=== PATIENT | male | born 1940 | race Caucasian/White ===

== ENCOUNTER 2016-10-08 17:16 | Emergency (ER) | payer MEDICARE, OTHER ==
[~2016-10-08 17:16] MED LIST: Iopamidol 370 76% 100 ML VIAL ONE
[2016-10-08] MEDS ORDERED: Ondansetron HCl/PF 4 MG/2 ML Vial ONE (17:44)
[2016-10-08] MEDS ORDERED: Sodium Chloride 0.9% 1,000 ML ONE (17:44)
[2016-10-08 17:59] LABS: #Basophils 0.1 thou/uL (0.0-0.2); #Eosinphils 0.1 thou/uL (0.0-0.7); #Lymphocytes 2.1 thou/uL (1.20-3.40); #Monocytes 0.8 thou/uL (0.11-0.59); %Basophils 0.9 % (0.0-1.0); %Eosinophils 1.4 % (0.0-10.0); %Lymphocytes 20.7 % (21.0-51.0); %Monocytes 8.2 % (0.0-10.0); %Neutrophils 68.7 % (42.0-75.0); ALT (SGPT) 21 U/L (8-55); AST (SGOT) 23 U/L (5-34); Albumin 4.1 g/dL (3.4-4.8); Alkaline Phosphatase 79 U/L (40-150); Anion Gap 17 mmol/L (10-20); BUN (Urea Nitrogen) 18 mg/dL (8.4-25.7); Bilirubin, Total 0.9 mg/dL (0.2-1.2); Calc. Creatinine Clearance 0 mL/min (70-130); Calcium 9.7 mg/dL (7.8-10.44); Carbon Dioxide 21 mmol/L (23-31); Chloride 100 mmol/L (98-107); Estimated GFR-MDRD 56; Glucose 118 mg/dL (83-110); Hemoglobin 15.9 g/dL (14.0-18.0); Lipase 32 U/L (8-78); Mean Corpuscular HGB CONC 32.8 g/dL (32.0-36.0); Mean Corpuscular Hemoglobin 27.9 pg (27.0-31.0); Mean Corpuscular Volume 85.1 fl (80.0-94.0); Mean Platelet Volume 8.9 fL (7.4-10.4); Platelet Count 191 thou/uL (130-400); Potassium 4.2 mmol/L (3.5-5.1); Protein, Total 8.1 g/dL (5.8-8.1); RBC Distribution Width 11.8 % (11.5-14.5); Red Blood Cell (RBC) Count 5.69 mill/uL (4.70-6.10); Sodium 134 mmol/L (136-145); White Blood Cell (WBC) Count 10.2 thou/uL (4.8-10.8)
[2016-10-08 18:01] LABS: Bilirubin Negative (Negative); Blood, Urine Negative (Negative); Glucose, Urine (Dipstick) Negative (Negative); Leukocyte Negative (Negative); Nitrite Negative (Negative); Protein, Urine (Dipstick) Negative (Neg-Trace); Specific Gravity, Urine 1.025 (1.005-1.030); Urobilinogen 0.2 mg/dL (0.2-1.0); pH, Urine 5.5 (5.0-9.0)
[2016-10-08 18:02] LABS: Clarity SL HAZY (Clear)
[2016-10-08 18:14] LABS: CKMB 4.2 ng/mL (0-6.6); Troponin I Less than 0.010 ng/mL (< 0.028)
[2016-10-08 18:27] LABS: Lactic Acid 1.4 mmol/L (0.5-2.2)
[2016-10-08] MEDS ORDERED: Morphine Sulfate 2 MG/ML SYRINGE ONE ×2 (18:49→18:52)
[2016-10-08] MEDS ORDERED: Lidocaine Viscous Sol 2% 15 ml UD Cup ONE (19:30)
--- NOTE | 2016-10-08 20:21 | RAD ---
AP SITTING PORTABLE CHEST ONE VIEW HISTORY: A 76-year-old male with abdominal pain. COMPARISON: 09/11/2016 FINDINGS: The left costophrenic angle is not completely included on this study. Heart size is normal. The lorenza ngs are clear. IMPRESSION: No acute intrathoracic disease involving the visualized chest. The left costophrenic angle is not i ncluded. POS: JEMAL
--- NOTE | 2016-10-08 22:12 | CT ---
CT ABDOMEN WITH IV CONTRAST 10/08/2016 HISTORY: Mid abdominal pain. CONTRAST: Isovue 370 95 mL IV. FINDINGS This examination was obtained with a suboptimal phase of contrast, with the majority of the contrast in the right atrium and right ventricle, as well as in the pulmonary arteries. There is only very minimal opacification of the parenchymal organs, which limits evaluation of the parenchymal organs. There is an approximately 4 mm noncalcified pulmonary nodule in the right lower lobe. There is mini mal pleural-based calcifications at the posteromedial left lung base. The lung bases are otherwise clear. Degenerative changes are seen in the spine. 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 Vascular calcifications are seen in the coronary arteries, as well as involving the abdominal aorta and iliac arteries. 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 Dense atherosclerotic vascular calcifica tions and irregularity involve the proximal common iliac arteries bilaterally, greater on the right, with at least moderate narrowing present. Dense calcifications at the origin of the celiac and superior mesenteric arteries limit evaluation o f the lumen. Post cholecystectomy changes are seen. The liver, spleen, pancreas, bilateral adrenal glands, left kidney, and partially distended urinary bladder demonstrate a grossly normal CT appearance. Again, parenchymal organs are not well opacifie d, due to the suboptimal phase of imaging. There is dilatation of the common duct, which measures 1.6 cm. This is more dilated than typically expected. This is probably related to reservoir effect from post cholecystectomy changes. There is a subcentimeter, [id number], hypodense lesion at the inferior pole, right ki dney. There are dilated loops of small bowel, which are predominantly fluid filled. The loops of small rambo wel measure up to 3.2 cm in diameter. There is a transition point seen in the right mid abdomen, to the level of the ileocecal valve, and the bowel demonstrates what appears to be eccentric bowel wal l thickening involving a loop of the distal ileum. While this apparent thickening could be related to a focal area of peristalsis, this is also the site of the transition point for a partial small rambo wel obstruction. There is colonic diverticulosis. There is a small, fat-containing umbilical hernia. No free fluid, fluid collection, or lymphadenopathy is seen in the abdomen or pelvis. IMPRESSION: 1. Partial small bowel obstruction with transition point in the right mid abdomen. There is focal wall thickening involving the loop of small bowel at the level of the transition point. There is no adjacent inflammatory stranding seen, and the exact etiology for the focal thickening is uncertain. Mass involving the small bowel in this region cannot be entirely excluded. 3. Noncalcified pulmonary nodule, right lower lobe. 4. Post cholecystectomy changes. 5. Limited evaluation of the parenchymal organs due to suboptimal phase of contrast enhancement. POS: HOMERO
== END 2016-10-08 21:41 | disposition short-term general hospital (02) ==
LOC: NAV ERS 17:16
DX: K56.60 Unspecified intestinal obstruction (principal); I25.10 Atherosclerotic heart disease of native coronary artery without angina pectoris; G30.9 Alzheimer's disease, unspecified; F02.80 Dementia in other diseases classified elsewhere, unspecified severity, without behavioral disturbance, psychotic disturbance, mood disturbance, and anxiety; Z87.891 Personal history of nicotine dependence; Z79.82 Long term (current) use of aspirin; Z79.899 Other long term (current) drug therapy
CPT/HCPCS: 71010; 74177; 80053; 81003; 82553; 83605; 83690; 84484; 85025; 93005; 96361; 96374; 96375; 96376; J2270; J2405; J7050

== ENCOUNTER 2017-01-17 22:01 | Emergency (ER) | payer MEDICARE, OTHER ==
[2017-01-17] MEDS ORDERED: Lidocaine 1% w/Epinephrine 1:100K 20 ML VIAL ONE (22:24)
[2017-01-17] MEDS ORDERED: Adacel (T-DAP) 0.5 ML VIAL ONE (22:26)
[2017-01-17] MEDS ORDERED: Bacitracin Zinc 1 Packet ONE (22:26)
== END 2017-01-17 23:01 | disposition home or self-care (01) ==
LOC: NAV ERS 22:01
DX: S01.112A Laceration without foreign body of left eyelid and periocular area, initial encounter (principal); S00.83XA Contusion of other part of head, initial encounter; S80.212A Abrasion, left knee, initial encounter; S80.811A Abrasion, right lower leg, initial encounter; E78.5 Hyperlipidemia, unspecified; I25.10 Atherosclerotic heart disease of native coronary artery without angina pectoris; G30.9 Alzheimer's disease, unspecified; F02.80 Dementia in other diseases classified elsewhere, unspecified severity, without behavioral disturbance, psychotic disturbance, mood disturbance, and anxiety; F32.9 Major depressive disorder, single episode, unspecified; Z87.891 Personal history of nicotine dependence; Z79.899 Other long term (current) drug therapy; W01.119A Fall on same level from slipping, tripping and stumbling with subsequent striking against unspecified sharp object, initial encounter
CPT/HCPCS: 12011; 90471; 90715; J2001

== ENCOUNTER 2017-01-24 15:47 | Emergency (ER) | payer MEDICARE, OTHER | END 2017-01-24 16:10 | disposition home or self-care (01) | LOC: NAV ERS 15:47 | DX: S01.112D Laceration without foreign body of left eyelid and periocular area, subsequent encounter (principal); E78.5 Hyperlipidemia, unspecified; F32.9 Major depressive disorder, single episode, unspecified; I25.10 Atherosclerotic heart disease of native coronary artery without angina pectoris; G30.9 Alzheimer's disease, unspecified; Z87.891 Personal history of nicotine dependence ==

== ENCOUNTER 2017-06-02 12:05 | Emergency (ER) | payer MEDICARE, OTHER ==
--- NOTE | 2017-06-02 12:57 | RAD ---
FOUR VIEWS OF THE RIGHT KNEE: HISTORY: Alzheimer disease. Right knee pain. COMPARISON: None. FINDINGS: Four views of the right knee show moderate tricompartmental joint space narrowing and osteophyte form ation, consistent with osteoarthritis. There is calcification of the menisci, likely secondary to CP PD. Vascular calcifications are seen. IMPRESSION: 1. No evidence of acute osseous abnormality. 2. Moderate right knee osteoarthritis. 3. Calcium pyrophosphate deposition disease. POS: JEMAL
== END 2017-06-02 13:10 | disposition home or self-care (01) ==
LOC: NAV ERS 12:05
DX: M17.11 Unilateral primary osteoarthritis, right knee (principal); I10 Essential (primary) hypertension; E78.5 Hyperlipidemia, unspecified; I25.10 Atherosclerotic heart disease of native coronary artery without angina pectoris; G30.9 Alzheimer's disease, unspecified; F02.80 Dementia in other diseases classified elsewhere, unspecified severity, without behavioral disturbance, psychotic disturbance, mood disturbance, and anxiety; F32.9 Major depressive disorder, single episode, unspecified; Z87.891 Personal history of nicotine dependence; Z79.899 Other long term (current) drug therapy

== ENCOUNTER 2017-06-25 10:05 | Emergency (ER) | payer MEDICARE, OTHER ==
--- NOTE | 2017-06-25 11:00 | RAD ---
3 VIEWS LEFT HAND: Date: 06/25/17 HISTORY: Left hand pain after injury. FINDINGS: There is osteoarthritis involving the first metacarpophalangeal joint, as well as the interphalangeal joints. No acute fracture or dislocation is visualized. There are calcifications seen in the region of the triangular fibrocartilage. IMPRESSION: Osteoarthritis without evidence of an acute osseous abnormality involving the left hand. POS: JEMAL
--- NOTE | 2017-06-25 11:29 | RAD ---
THREE VIEWS LEFT WRIST: DATE: 06/25/17. HISTORY: Left hand injury after fall. Joint pain. FINDINGS: Visualized osteoarthritis involving the 1st metacarpophalangeal joint. Lucency is seen within the lorenza reji bone which may represent either a subchondral cystic change or intraosseous ganglion. Calcifica tions are seen in the region of the triangular fibrocartilage. No acute fracture or dislocation is s een. Vascular calcification is seen at the volar aspect of the forearm and wrist. IMPRESSION: 1. Osteoarthritis without evidence of an acute fracture involving the left wrist. If there is stron g clinical concern for a fracture of the navicular bone, followup views of the wrist are recommended in 4-7 days to exclude an occult fracture. 2. Atherosclerotic vascular calcifications. POS: MARLENI
== END 2017-06-25 11:30 | disposition home or self-care (01) ==
LOC: NAV ERS 10:05
DX: S63.502A Unspecified sprain of left wrist, initial encounter (principal); S60.222A Contusion of left hand, initial encounter; R05 Cough; E78.5 Hyperlipidemia, unspecified; I25.10 Atherosclerotic heart disease of native coronary artery without angina pectoris; G30.9 Alzheimer's disease, unspecified; F02.80 Dementia in other diseases classified elsewhere, unspecified severity, without behavioral disturbance, psychotic disturbance, mood disturbance, and anxiety; F32.9 Major depressive disorder, single episode, unspecified; Z87.891 Personal history of nicotine dependence; Z79.899 Other long term (current) drug therapy; W18.30XA Fall on same level, unspecified, initial encounter; Y92.009 Unspecified place in unspecified non-institutional (private) residence as the place of occurrence of the external cause